=== PATIENT | male | born 1960 | race Caucasian/White ===

== ENCOUNTER 2016-09-07 16:06 | Inpatient (IN) | payer OTHER ==
[2016-09-07 20:26] VITALS: BMI 28.5
--- NOTE | 2016-09-07 21:20 | HP ---
CIWA Score - CIWA Score Nausea/Vomitin-Mild Nausea/No Vomiting Muscle Tremors: 3 Anxiety: 3 Agitation: 3 Paroxysmal Sweats: 3 Orientation: 0-Oriented Tacttile Disturbances: 0-None Auditory Disturbances: 1-Very Mild Visual Disturbances: 0-None Headache: 2-Mild CIWA-Ar Total Score: 16 Admission ROS BHS - HPI Chief Complaint: WITHDRAWAL SYMPTOMS Allergies/Adverse Reactions: Allergies Allergy/AdvReac Type Severity Reaction Status Date / Time No Known Allergies Allergy Verified 09/07/16 21:22 History of Present Illness: 56 Y.O. WITH AN EXTENSIVE HISTORY OF ALCOHOL DEPENDENCE IS HERE SEEKING DETOX. HE REPORTS HAVING AN 8 YEAR HISTORY OF SOBRIETY AND RELAPSING IN 05/2016. HE REPORTS HE WAS PREVIOUSLY HERE FOR DETOX 20 YEARS PRIOR. Exam Limitations: Intoxication - Ebola screening Have you traveled outside of the country in the last 21 days: No Have you had contact with anyone from an Ebola affected area: No Have you been sick,other than usual withdrawal symptoms: No Do you have a fever: No - Review of Systems Constitutional: Loss of Appetite EENT: reports: Blurred Vision, Double Vision, Tearing Respiratory: reports: Shortness of Breath Cardiac: reports: Lightheadedness GI: reports: Constipated (11/2013 HAD COLON RESECTION SX; ON BOWEL REGIMEN), Poor Appetite : reports: No Symptoms Reported Musculoskeletal: reports: Back Pain (SCIATICA AND OA), Muscle Weakness Integumentary: reports: No Symptoms Reported Neuro: reports: Headache, Tremors Endocrine: reports: No Symptoms Reported Hematology: reports: No Symptoms Reported Psychiatric: reports: Mood/Affect Appropiate, Orientated x3, Depressed Other Systems: Reviewed and Negative Patient History - Patient Medical History Hx Anemia: No Hx Asthma: Yes Hx Chronic Obstructive Pulmonary Disease (COPD): No Hx Cancer: No Hx Cardiac Disorders: No Hx Congestive Heart Failure: No Hx Hypertension: Yes Hx Hypercholesterolemia: No Hx Pacemaker: No HX Cerebrovascular Accident: No Hx Seizures: No Hx Dementia: No Hx Diabetes: No (BORDERLINE ) Hx Gastrointestinal Disorders: Yes (CONSTIPATION ) Hx Liver Disease: Yes (HX OF HEP. B) Hx Genitourinary Disorders: No Hx Sexually Transmitted Disorders: No Hx Renal Disease (ESRD): No Hx Thyroid Disease: No Hx Human Immunodeficiency Virus (HIV): No (NEG ) Hx Hepatitis C: No Hx Depression: Yes Hx Suicide Attempt: No Hx Bipolar Disorder: No Hx Schizophrenia: No - Patient Surgical History Past Surgical History: Yes Hx Neurologic Surgery: No Hx Cataract Extraction: No Hx Cardiac Surgery: No Hx Lung Surgery: No Hx Breast Surgery: No Hx Breast Biopsy: No Hx Abdominal Surgery: Yes (DOUBLE HERNIA REPAIR W/ MESH 05/2014) Hx Appendectomy: No Hx Cholecystectomy: No Hx Genitourinary Surgery: No Hx Orthopedic Surgery: Yes (RIGHT KNEE SX 2014, R HIP REPLACEMENT 05/2015; LEFT HIP REPLACEMENT 08/2015) Other Surgical History: BOWEL RESECTION 2013 Anesthesia Reaction: No - PPD History Previous Implant?: Yes Documented Results: Negative w/o proof PPD to be Administered?: Yes - Reproductive History Patient is a Female of Child Bearing Age (11 -55 yrs old): No - Smoking Cessation Smoking history: Current every day smoker Have you smoked in the past 12 months: Yes Aproximately how many cigarettes per day: 20 Hx Chewing Tobacco Use: No Initiated information on smoking cessation: Yes 'Breaking Loose' booklet given: 09/07/16 - Substance & Tx. History Hx Alcohol Use: Yes Hx Substance Use: Yes Substance Use Type: Alcohol Hx Substance Use Treatment: Yes (DETOX AND REHAB ) - Substances Abused Alcohol Route: Oral Frequency: Daily Amount used: 6 PACK OF BEER + 1 PINT OF LIQUOR Age of first use: 18 Date of Last Use: 09/07/16 Family Disease History - Family Disease History Family Disease History: Diabetes: Father, [place]: Grandparent, Father Admission Physical Exam BHS - Vital Signs Vital Signs: Vital Signs - 24 hr 09/07/16 20:24 Temperature 97.6 F Pulse Rate 98 H Respiratory 20 Rate Blood Pressure 163/105 - Physical General Appearance: Yes: Alcohol on Breath, Intoxicated, Tremorous, Sweating, Anxious HEENTM: Yes: Hearing grossly Normal, Normocephalic, Normal Voice Respiratory: Yes: Lungs Clear, Normal Breath Sounds, No Respiratory Distress, No Accessory Muscle Use Neck: Yes: No masses,lesions,Nodules, Trachea in good position Breast: Yes: Breast Exam Deferred Cardiology: Yes: Regular Rate, S1, S2 Abdominal: Yes: Flat, Soft, Surgical Scar Genitourinary: Yes: Other (NO COMPLAINTS REPORTED) Back: Yes: Normal Inspection Musculoskeletal: Yes: Back pain, Joint Stiffness Extremities: Yes: Tremors Neurological: Yes: Fully Oriented, Alert, Normal Mood/Affect, Normal Response Integumentary: Yes: Rash (GENERALIZED) Lymphatic: Yes: Within Normal Limits - Diagnostic (1) Alcohol dependence with uncomplicated withdrawal Current Visit: Yes Status: Chronic (2) Hypertension Current Visit: Yes Status: Chronic (3) Constipation Current Visit: Yes Status: Chronic (4) Asthma Current Visit: Yes Status: Chronic (5) Nicotine dependence Current Visit: Yes Status: Chronic (6) Dermatitis Current Visit: Yes Status: Chronic Cleared for Admission [facility] - Detox or Rehab [facility] Level of Care: Medically Managed Detox Regimen/Protocol: Librium [facility] Breath Alcohol Content Breath Alcohol Content: 0.141 Vital Signs - Bowel Function Bowel Movement: Yes (09/07/16) Urine Drug Screen - Results Drug Screen Negative: No Urine Drug Screen Results: BZO-Benzodiazepines
[2016-09-07] MEDS ORDERED: ACETAMINOPHEN 325 MG TABLET (FP) PO PRN (21:56)
[2016-09-07] MEDS ORDERED: guaiFENesin/D-METHORPHAN HB 10 ML UNIT-DOSE CUPS PO PRN (21:56)
[2016-09-07] MEDS ORDERED: LOPERAMIDE HCL 2 MG CAPSULE PO PRN (21:56)
[2016-09-07] MEDS ORDERED: MAG HYDROX/AL HYDROX/SIMETH 30 ML UNIT-DOSE CUP PO PRN (21:56)
[2016-09-07] MEDS ORDERED: MENTHOL/PHENOL 1 EACH UD MM PRN (21:56)
[2016-09-07] MEDS ORDERED: NICOTINE POLACRILEX 2 MG GUM BUC PRN (21:56)
[2016-09-07] MEDS ORDERED: MAGNESIUM CITRATE 300 ML BOTTLE PO PRN (21:56)
[2016-09-07] MEDS ORDERED: MAGNESIUM HYDROX 2400MG/30ML ORAL SUSPENSION 30 ML CUP PO PRN (21:56)
[2016-09-07] MEDS ORDERED: P-EPHED 60MG/TRIPROLIDI 2.5MG TABLET PO PRN (21:56)
[2016-09-07] MEDS ORDERED: chlordiazePOXIDE HCL 25 MG CAPSULE PO PRN (21:56)
[2016-09-07] MEDS ORDERED: FLUTICASONE PROP 0.05% 16 GM NASAL SPRAY NS PRN (22:03)
[2016-09-07] MEDS ORDERED: ALBUTEROL SO4 6.7 GM HFA INHALER IH PRN (22:04)
[2016-09-07] MEDS ORDERED: chlordiazePOXIDE HCL 25 MG CAPSULE PO ONE (22:16)
[2016-09-07] MEDS: chlordiazePOXIDE HCL 25 MG CAPSULE PO SCH (23:14)
[2016-09-07] MEDS: THIAMINE HCL 100 MG TABLET (FP) PO SCH (23:15)
[2016-09-07] MEDS: diphenhydrAMINE HCL 50 MG CAPSULE PO PRN (23:15)
[2016-09-08] MEDS: chlordiazePOXIDE HCL 25 MG CAPSULE PO SCH ×4 (05:48→22:26)
[2016-09-08] MEDS: LACTULOSE 20 GM/30 ML UDC (FOR ORAL USE ONLY) PO PRN ×2 (05:51→11:25)
[2016-09-08] MEDS: DOCUSATE SODIUM 100 MG CAPSULE (FP) PO SCH ×2 (10:40→22:26)
[2016-09-08] MEDS: PRENATAL VITAMINS W/ FOLIC ACID TABLET (FP) PO SCH (10:40)
[2016-09-08] MEDS: ASPIRIN COATED 81 MG TABLET.EC PO SCH (10:40)
[2016-09-08] MEDS: PANTOPRAZOLE 40 MG TABLET (FP) PO SCH (10:40)
[2016-09-08] MEDS: NICOTINE 21 MG/24 HOURS TOPICAL PATCH TD SCH (10:40)
[2016-09-08 10:44] LABS: MCH 30.3 pg (25.7-33.7); MCHC 33.1 g/dl (32.0-35.9); MEAN CELL VOLUME 91.7 fl (80-96); MEAN PLT VOLUME 9.3 fl (7.5-11.1); PLATELET COUNT 157 K/MM3 (134-434); RDW 14.9 % (11.9-15.9); WHITE BLOOD COUNT 5.9 K/mm3 (4.0-10.0)
[2016-09-08] MEDS: IBUPROFEN 400 MG TABLET (FP) PO PRN ×2 (10:44→18:43)
[2016-09-08] MEDS: NIFEdipine E.R. 30 MG TABLET (FP) PO SCH (11:16)
[2016-09-08 11:36] LABS: ALBUMIN 3.8 g/dl (3.4-5.0); ALK PHOS 52 U/L (45-117); ANION GAP 9 (8-16); BILIRUBIN,TOTAL 0.4 mg/dL (0.2-1.0); CALCIUM 9.1 mg/dL (8.5-10.1); CO2 28 mmol/L (21-32); COCKROFT - GAULT 100.67; GLUCOSE,RANDOM 96 mg/dL (74-106); SGOT/AST 23 U/L (15-37); SGPT/ALT 27 U/L (12-78)
--- NOTE | 2016-09-08 12:06 | PN ---
S CIWA - CIWA Score Nausea/Vomitin Muscle Tremors: 2 Anxiety: 2 Agitation: 2 Paroxysmal Sweats: 3 Orientation: 0-Oriented Tacttile Disturbances: 1-Very Mild Itch/Numbness Auditory Disturbances: 0-None Visual Disturbances: 0-None Headache: 2-Mild CIWA-Ar Total Score: 14 S Progress Note (SOAP) Subjective: muscle/joint/back pain, shakes Objective: 09/08/16 12:05 Vital Signs - 8 hr 09/08/16 09/08/16 06:26 10:22 Temperature 97 F L 96.4 F L Pulse Rate 94 H 106 H Respiratory 18 18 Rate Blood Pressure 135/82 139/92 Laboratory Last Values WBC 5.9 K/mm3 (4.0-10.0) 09/08/16 07:50 RBC 5.00 M/mm3 (4.00-5.60) 09/08/16 07:50 Hgb 15.2 GM/dL (11.7-16.9) 09/08/16 07:50 Hct 45.9 % (35.4-49) 09/08/16 07:50 MCV 91.7 fl (80-96) 09/08/16 07:50 MCHC 33.1 g/dl (32.0-35.9) 09/08/16 07:50 RDW 14.9 % (11.9-15.9) 09/08/16 07:50 Plt Count 157 K/MM3 (134-434) 09/08/16 07:50 MPV 9.3 fl (7.5-11.1) 09/08/16 07:50 Sodium 141 mmol/L (136-145) 09/08/16 07:50 Potassium 4.3 mmol/L (3.5-5.1) 09/08/16 07:50 Chloride 104 mmol/L (98-107) 09/08/16 07:50 Carbon Dioxide 28 mmol/L (21-32) 09/08/16 07:50 Anion Gap 9 (8-16) 09/08/16 07:50 BUN 12 mg/dL (7-18) 09/08/16 07:50 Creatinine 1.0 mg/dL (0.7-1.3) 09/08/16 07:50 Creat Clearance w eGFR > 60 (>60) 09/08/16 07:50 Random Glucose 96 mg/dL (74-106) 09/08/16 07:50 Calcium 9.1 mg/dL (8.5-10.1) 09/08/16 07:50 Total Bilirubin 0.4 mg/dL (0.2-1.0) 09/08/16 07:50 AST 23 U/L (15-37) 09/08/16 07:50 ALT 27 U/L (12-78) 09/08/16 07:50 Alkaline Phosphatase 52 U/L (45-117) 09/08/16 07:50 Total Protein 7.0 g/dl (6.4-8.2) 09/08/16 07:50 Albumin 3.8 g/dl (3.4-5.0) 09/08/16 07:50 labs noted Assessment: 09/08/16 12:06 withdrawal sx Plan: continue detox
--- NOTE | 2016-09-08 12:31 | CONSULT ---
[facility] Psychiatric Consult - Data Date of interview: 09/08/16 Admission source: [facility] Identifying data: First admission to [facility] for this 56 y/o male seeking detox treatment for alcohol dependence.Patient is ,a father of one,domiciled,unemployed and supported by /relatives. Substance Abuse History: - Smoking Cessation. Smoking history: Current every day smoker. Have you smoked in the past 12 months: Yes. Aproximately how many cigarettes per day: 20. Hx Chewing Tobacco Use: No. Initiated information on smoking cessation: Yes. 'Breaking Loose' booklet given: 09/07/16. - Substance & Tx. History. Hx Alcohol Use: Yes. Hx Substance Use: Yes. Substance Use Type : Alcohol. Hx Substance Use Treatment: Yes (DETOX AND REHAB ). - Substances Abused. Alcohol. Route: Oral. Frequency: Daily. Amount used: 6 PACK OF BEER + 1 PINT OF LIQUOR. Age of first use: 18. Date of Last Use: 09/07/16. Confirmed by patient. Medical History: Bronchial asthma,sciatica,herniated discs,lower back pain, diabetes mellitus (borderline),hepatitis B and a history of multiple surgeries ( right knee in 2014,right hip/left hip replacement in 2015,colon resection in 2013 and double abdominal herniorraphy with mesh in 2014). Psychiatric History: No reported history of psychiatric hospitalizations.Mr Balderas admits to a long standing history of outpatient psychiatric treatment under the care of a private psychiatrist for 14 years (now ).Patient is diagnosed with MDD and Anxiety Disorder.Maintained on trazodone 150 mg po bid + thaorazine 25 mg po bid.He has been seeing another private psychiatrist,in the [place],for one year.Last took his medications on 09/07/16 as per self- report.Patient denies history of suicide attempts. Physical/Sexual Abuse/Trauma History: Patient denies. Additional Comment: Urine Drug Screen Results: BZO-Benzodiazepines.Noted. Mental Status Exam - Mental Status Exam Alert and Oriented to: Time, Place, Person Cognitive Function: Good Patient Appearance: Well Groomed Mood: Hopeful, Euthymic Affect: Appropriate, Normal Range Patient Behavior: Cooperative Speech Pattern: Clear, Appropriate Voice Loudness: Normal Thought Process: Intact, Goal Oriented Thought Disorder: Not Present Hallucinations: Denies Suicidal Ideation: Denies Homicidal Ideation: Denies Insight/Judgement: Poor Sleep: Poorly, Difficulty falling asleep Appetite: Good Muscle strength/Tone: Normal Gait/Station: Normal Psychiatric Findings - Problem List ([place] 1, 2,3) (1) Alcohol dependence with uncomplicated withdrawal Current Visit: Yes Status: Acute (2) Nicotine dependence Current Visit: Yes Status: Acute (3) Alcohol-induced mood disorder Current Visit: Yes Status: Acute (4) Asthma Current Visit: Yes Status: Chronic (5) Constipation Current Visit: Yes Status: Chronic (6) Dermatitis Current Visit: Yes Status: Chronic (7) Hypertension Current Visit: Yes Status: Chronic (8) Insomnia Current Visit: Yes Status: Acute - Initial Treatment Plan Initial Treatment Plan: Psychoeducation.Detoxification in progress.Medications : trazodone 150 mg po hs (intentionally reduced).Thorazine is held (no clinical justification).Patient is made aware of potential for priapism with the use of trazodone.He endorses history of good tolerability to the medication.Eager to resume trazodone.Observation.
[2016-09-08] MEDS: hydrOXYzine PAMOATE 50 MG CAPSULE (FP) PO PRN (13:46)
[2016-09-08] MEDS: FLUTICASONE PROP 0.05% 16 GM NASAL SPRAY NS SCH (22:25)
[2016-09-08] MEDS: diphenhydrAMINE HCL 50 MG CAPSULE PO PRN (22:26)
[2016-09-08] MEDS: THIAMINE HCL 100 MG TABLET (FP) PO SCH (22:26)
[2016-09-08] MEDS: traZODone HCL 50 MG TABLET (FP) PO SCH (22:26)
[2016-09-09] MEDS: hydrOXYzine PAMOATE 50 MG CAPSULE (FP) PO PRN ×2 (04:26→13:16)
[2016-09-09] MEDS: IBUPROFEN 400 MG TABLET (FP) PO PRN ×2 (04:26→16:40)
[2016-09-09] MEDS: chlordiazePOXIDE HCL 25 MG CAPSULE PO SCH ×3 (05:38→17:13)
[2016-09-09] MEDS: LACTULOSE 20 GM/30 ML UDC (FOR ORAL USE ONLY) PO PRN ×2 (05:39→17:14)
[2016-09-09] MEDS: PRENATAL VITAMINS W/ FOLIC ACID TABLET (FP) PO SCH (10:34)
[2016-09-09] MEDS: FLUTICASONE PROP 0.05% 16 GM NASAL SPRAY NS SCH ×2 (10:34→22:44)
[2016-09-09] MEDS: NIFEdipine E.R. 30 MG TABLET (FP) PO SCH (10:34)
[2016-09-09] MEDS: DOCUSATE SODIUM 100 MG CAPSULE (FP) PO SCH ×2 (10:34→22:44)
[2016-09-09] MEDS: PANTOPRAZOLE 40 MG TABLET (FP) PO SCH (10:35)
[2016-09-09] MEDS: NICOTINE 21 MG/24 HOURS TOPICAL PATCH TD SCH (10:35)
[2016-09-09] MEDS: ASPIRIN COATED 81 MG TABLET.EC PO SCH (10:35)
--- NOTE | 2016-09-09 14:39 | PN ---
S CIWA - CIWA Score Nausea/Vomitin Muscle Tremors: 4-Moderate,w/Arms Extend Anxiety: 4-Mod. Anxious/Guarded Agitation: 4-Moderately Restless Paroxysmal Sweats: 3 Orientation: 0-Oriented Tacttile Disturbances: 1-Very Mild Itch/Numbness Auditory Disturbances: 0-None Visual Disturbances: 0-None Headache: 3-Moderate CIWA-Ar Total Score: 22 BHS Progress Note (SOAP) Subjective: Tremor, chills, nausea, anxious, restless, diarrhea Objective: 09/09/16 14:38 Last Vital Signs Temp Pulse Resp BP Pulse Ox 99.1 F 72 20 156/94 09/09/16 13:45 09/09/16 13:45 09/09/16 13:45 09/09/16 13:45 Laboratory Tests 09/08/16 09/08/16 09/08/16 07:50 07:50 07:50 WBC 5.9 RBC 5.00 Hgb 15.2 Hct 45.9 MCV 91.7 MCHC 33.1 RDW 14.9 Plt Count 157 MPV 9.3 Sodium 141 Potassium 4.3 Chloride 104 Carbon Dioxide 28 Anion Gap 9 BUN 12 Creatinine 1.0 Creat Clearance w eGFR > 60 Random Glucose 96 Calcium 9.1 Total Bilirubin 0.4 AST 23 ALT 27 Alkaline Phosphatase 52 Total Protein 7.0 Albumin 3.8 RPR Titer Nonreactive Labs noted Assessment: 09/09/16 14:39 Withdrawal symptoms Plan: Continue detox, encouraged to drink lots of water
[2016-09-09] MEDS: THIAMINE HCL 100 MG TABLET (FP) PO SCH (22:43)
[2016-09-09] MEDS: chlordiazePOXIDE 5 MG CAPSULE PO SCH (22:43)
[2016-09-09] MEDS: traZODone HCL 50 MG TABLET (FP) PO SCH (22:44)
[2016-09-09] MEDS: diphenhydrAMINE HCL 50 MG CAPSULE PO PRN (22:47)
[2016-09-10] MEDS: hydrOXYzine PAMOATE 50 MG CAPSULE (FP) PO PRN ×4 (00:33→19:11)
[2016-09-10] MEDS: LACTULOSE 20 GM/30 ML UDC (FOR ORAL USE ONLY) PO PRN ×2 (05:03→17:11)
[2016-09-10] MEDS: IBUPROFEN 400 MG TABLET (FP) PO PRN ×2 (05:03→13:15)
[2016-09-10] MEDS: chlordiazePOXIDE 5 MG CAPSULE PO SCH ×3 (05:03→17:10)
[2016-09-10] MEDS: NICOTINE 21 MG/24 HOURS TOPICAL PATCH TD SCH (10:37)
[2016-09-10] MEDS: PANTOPRAZOLE 40 MG TABLET (FP) PO SCH (10:38)
[2016-09-10] MEDS: NIFEdipine E.R. 30 MG TABLET (FP) PO SCH (10:38)
[2016-09-10] MEDS: ASPIRIN COATED 81 MG TABLET.EC PO SCH (10:38)
[2016-09-10] MEDS: PRENATAL VITAMINS W/ FOLIC ACID TABLET (FP) PO SCH (10:38)
[2016-09-10] MEDS: DOCUSATE SODIUM 100 MG CAPSULE (FP) PO SCH ×2 (10:39→22:29)
[2016-09-10] MEDS: FLUTICASONE PROP 0.05% 16 GM NASAL SPRAY NS SCH ×2 (10:39→22:31)
--- NOTE | 2016-09-10 11:31 | EKG ---
Test Reason : Blood Pressure : / mmHG Vent. Rate : 088 BPM Atrial Rate : 088 BPM P-R Int : 136 ms QRS Dur : 084 ms QT Int : 374 ms P-R-T Axes : 068 074 053 degrees QTc Int : 452 ms NORMAL SINUS RHYTHM NORMAL ECG NO PREVIOUS ECGS AVAILABLE Confirmed by DAVID PAK, LANE ([id number]) on 09/10/2016 11:31:18 AM Referred By: Confirmed By:LANE HERNANDEZ MD
[2016-09-10] MEDS: BISACODYL 5 MG TABLET.DR (FP) PO PRN (12:26)
--- NOTE | 2016-09-10 13:45 | PN ---
S Progress Note (SOAP) Subjective: Anxious, restless, sweating, interrupted sleep Objective: 09/10/16 13:44 Last Vital Signs Temp Pulse Resp BP Pulse Ox 97.1 F L 68 18 144/97 09/10/16 13:23 09/10/16 13:23 09/10/16 13:23 09/10/16 13:23 Laboratory Tests 09/08/16 09/08/16 09/08/16 07:50 07:50 07:50 WBC 5.9 RBC 5.00 Hgb 15.2 Hct 45.9 MCV 91.7 MCHC 33.1 RDW 14.9 Plt Count 157 MPV 9.3 Sodium 141 Potassium 4.3 Chloride 104 Carbon Dioxide 28 Anion Gap 9 BUN 12 Creatinine 1.0 Creat Clearance w eGFR > 60 Random Glucose 96 Calcium 9.1 Total Bilirubin 0.4 AST 23 ALT 27 Alkaline Phosphatase 52 Total Protein 7.0 Albumin 3.8 RPR Titer Nonreactive Labs noted Assessment: 09/10/16 13:44 Withdrawal symptoms Plan: Continue detox
[2016-09-10 14:40] LABS: URINE APPEARANCE CLEAR; URINE BILIRUBIN NEGATIVE (NEGATIVE); URINE BLOOD NEGATIVE (NEGATIVE); URINE COLOR STRAW; URINE GLUCOSE (UA) NEGATIVE (NEGATIVE); URINE KETONE NEGATIVE (NEGATIVE); URINE LEUK ESTERASE NEGATIVE (NEGATIVE); URINE NITRITE NEGATIVE (NEGATIVE); URINE PROTEIN NEGATIVE (NEGATIVE); URINE UROBILINOGEN NEGATIVE E.U./dl (0.2-1.0)
[2016-09-10] MEDS: diphenhydrAMINE HCL 50 MG CAPSULE PO PRN (22:29)
[2016-09-10] MEDS: chlordiazePOXIDE HCL 10 MG CAPSULE PO SCH (22:29)
[2016-09-10] MEDS: THIAMINE HCL 100 MG TABLET (FP) PO SCH (22:29)
[2016-09-10] MEDS: traZODone HCL 50 MG TABLET (FP) PO SCH (22:29)
[2016-09-11] MEDS: IBUPROFEN 400 MG TABLET (FP) PO PRN (03:11)
[2016-09-11] MEDS: hydrOXYzine PAMOATE 50 MG CAPSULE (FP) PO PRN ×2 (03:11→09:23)
[2016-09-11] MEDS: LACTULOSE 20 GM/30 ML UDC (FOR ORAL USE ONLY) PO PRN (05:09)
[2016-09-11] MEDS: chlordiazePOXIDE HCL 10 MG CAPSULE PO SCH (05:24)
[2016-09-11 06:16] VITALS: BP 136/85; PULSE 64; TEMP 96.5
--- NOTE | 2016-09-11 09:03 | DS ---
[facility] Detox Discharge Summary Admission Date: 09/07/16 Discharge Date: 09/11/16 - History Present History: Alcohol Dependence Pertinent Past History: Asthma HTN - Physical Exam Results Vital Signs: Vital Signs Temperature 96.5 F L 09/11/16 06:16 Pulse Rate 64 09/11/16 06:16 Respiratory Rate 18 09/11/16 06:16 Blood Pressure 136/85 09/11/16 06:16 O2 Sat by Pulse Oximetry (%) Pertinent Admission Physical Exam Findings: Withdrawal sx. Laboratory Last Values WBC 5.9 K/mm3 (4.0-10.0) 09/08/16 07:50 RBC 5.00 M/mm3 (4.00-5.60) 09/08/16 07:50 Hgb 15.2 GM/dL (11.7-16.9) 09/08/16 07:50 Hct 45.9 % (35.4-49) 09/08/16 07:50 MCV 91.7 fl (80-96) 09/08/16 07:50 MCHC 33.1 g/dl (32.0-35.9) 09/08/16 07:50 RDW 14.9 % (11.9-15.9) 09/08/16 07:50 Plt Count 157 K/MM3 (134-434) 09/08/16 07:50 MPV 9.3 fl (7.5-11.1) 09/08/16 07:50 Sodium 141 mmol/L (136-145) 09/08/16 07:50 Potassium 4.3 mmol/L (3.5-5.1) 09/08/16 07:50 Chloride 104 mmol/L (98-107) 09/08/16 07:50 Carbon Dioxide 28 mmol/L (21-32) 09/08/16 07:50 Anion Gap 9 (8-16) 09/08/16 07:50 BUN 12 mg/dL (7-18) 09/08/16 07:50 Creatinine 1.0 mg/dL (0.7-1.3) 09/08/16 07:50 Creat Clearance w eGFR > 60 (>60) 09/08/16 07:50 Random Glucose 96 mg/dL (74-106) 09/08/16 07:50 Calcium 9.1 mg/dL (8.5-10.1) 09/08/16 07:50 Total Bilirubin 0.4 mg/dL (0.2-1.0) 09/08/16 07:50 AST 23 U/L (15-37) 09/08/16 07:50 ALT 27 U/L (12-78) 09/08/16 07:50 Alkaline Phosphatase 52 U/L (45-117) 09/08/16 07:50 Total Protein 7.0 g/dl (6.4-8.2) 09/08/16 07:50 Albumin 3.8 g/dl (3.4-5.0) 09/08/16 07:50 Urine Color Straw 09/10/16 09:10 Urine Appearance Clear 09/10/16 09:10 Urine pH 6.0 (5.0-8.0) 09/10/16 09:10 Ur Specific [place] 1.010 (1.005-1.025) 09/10/16 09:10 Urine Protein Negative (NEGATIVE) 09/10/16 09:10 Urine Glucose (UA) Negative (NEGATIVE) 09/10/16 09:10 Urine Ketones Negative (NEGATIVE) 09/10/16 09:10 Urine Blood Negative (NEGATIVE) 09/10/16 09:10 Urine Nitrite Negative (NEGATIVE) 09/10/16 09:10 Urine Bilirubin Negative (NEGATIVE) 09/10/16 09:10 Urine Urobilinogen Negative E.U./dl (0.2-1.0) 09/10/16 09:10 Ur Leukocyte Esterase Negative (NEGATIVE) 09/10/16 09:10 RPR Titer Nonreactive (NONREACTIVE) 09/08/16 07:50 labs noted - Treatment Hospital Course: Detox Protocol Followed, Detoxed Safely, Responded well, Discharged Condition Good, Rehab Referral Accepted Patient has Accepted a Rehab Referral to: [facility] & 12 steps meetings - Medication Discharge Medications: Ambulatory Orders Aspirin [ASA -] 81 mg PO DAILY 09/07/16 Clobetasol Prop 0.05% Tp Oint [Temovate (Nf)] 60 gm NR BID 09/07/16 Docusate Sodium [Colace -] 100 mg PO BID 09/07/16 Hydrochlorothiazide [Hctz -] 12.5 mg PO DAILY 09/07/16 Nifedipine [Procardia Xl] 30 mg PO DAILY 09/07/16 Pantoprazole Sodium [Protonix -] 40 mg PO BID 09/07/16 Trazodone HCl [Desyrel -] 150 mg PO HS #30 tablet 09/10/16 - Diagnosis (1) Alcohol dependence with uncomplicated withdrawal Current Visit: Yes Status: Acute (2) Alcohol-induced mood disorder Current Visit: Yes Status: Acute (3) Insomnia Current Visit: Yes Status: Acute Qualifiers: Insomnia type: alcohol-induced Qualified Code(s): F10.982 - Alcohol use, unspecified with alcohol-induced sleep disorder (4) Nicotine dependence Current Visit: Yes Status: Acute (5) Asthma Current Visit: Yes Status: Chronic Qualifiers: Asthma severity: mild intermittent Asthma complication type: uncomplicated Qualified Code(s): J45.20 - Mild intermittent asthma, uncomplicated (6) Hypertension Current Visit: Yes Status: Chronic Qualifiers: Hypertension type: essential hypertension Qualified Code(s): I10 - Essential (primary) hypertension - AMA Did Patient Leave Against Medical Advice: No
[2016-09-11] MEDS: PANTOPRAZOLE 40 MG TABLET (FP) PO SCH (09:21)
[2016-09-11] MEDS: ASPIRIN COATED 81 MG TABLET.EC PO SCH (09:21)
[2016-09-11] MEDS: PRENATAL VITAMINS W/ FOLIC ACID TABLET (FP) PO SCH (09:21)
[2016-09-11] MEDS: DOCUSATE SODIUM 100 MG CAPSULE (FP) PO SCH (09:21)
[2016-09-11] MEDS: NIFEdipine E.R. 30 MG TABLET (FP) PO SCH (09:21)
[2016-09-11] MEDS: FLUTICASONE PROP 0.05% 16 GM NASAL SPRAY NS SCH (09:21)
[2016-09-11] MEDS: NICOTINE 21 MG/24 HOURS TOPICAL PATCH TD SCH (09:22)
[2016-09-11] MEDS: BISACODYL 5 MG TABLET.DR (FP) PO PRN (09:23)
== END 2016-09-11 09:30 | disposition home or self-care (01) | DRG 775 ==
LOC: YASAS 16:06 → Y3N 22:06
PROVIDERS: ADMIT Internal Medicine; ATTEND Internal Medicine
PROC: HZ2ZZZZ Detoxification Services for Substance Abuse Treatment (ICD-10-PCS; principal; 2016-09-07)
DX: F10.230 Alcohol dependence with withdrawal, uncomplicated (principal); F10.24 Alcohol dependence with alcohol-induced mood disorder; F10.282 Alcohol dependence with alcohol-induced sleep disorder; F17.210 Nicotine dependence, cigarettes, uncomplicated; J45.20 Mild intermittent asthma, uncomplicated; I10 Essential (primary) hypertension; K59.00 Constipation, unspecified; L30.9 Dermatitis, unspecified; R73.03 Prediabetes; B18.1 Chronic viral hepatitis B without delta-agent; Z96.643 Presence of artificial hip joint, bilateral
CPT/HCPCS: 36415; 80053; 81003; 85027; 86593; 93005; 93010

== ENCOUNTER 2021-02-26 21:13 | Inpatient (IN) | payer OTHER ==
[2021-02-26 21:20] VITALS: BMI 28.3
[2021-02-26] MEDS ORDERED: ONDANSETRON *ODT* 4 MG TABLET SL PRN (21:51)
[2021-02-26] MEDS ORDERED: IBUPROFEN 400 MG TABLET (FP) PO PRN (21:51)
[2021-02-26] MEDS ORDERED: NICOTINE POLACRILEX 2 MG GUM BUC PRN (21:51)
[2021-02-26] MEDS ORDERED: METHOCARBAMOL 500 MG TABLET PO PRN (21:51)
[2021-02-26] MEDS ORDERED: ACETAMINOPHEN 325 MG TABLET (FP) PO PRN ×2 (21:51)
[2021-02-26] MEDS ORDERED: MAGNESIUM HYDROX 2400MG/30ML ORAL SUSPENSION 30 ML CUP PO PRN (21:51)
[2021-02-26] MEDS ORDERED: BISMUTH SUBSALICYLATE 524 MG/30 ML PO PRN (21:51)
[2021-02-26] MEDS ORDERED: MAGNESIUM CITRATE 300 ML BOTTLE PO PRN (21:51)
[2021-02-26] MEDS ORDERED: MAG HYDROX/AL HYDROX/SIMETH 30 ML UNIT-DOSE CUP PO PRN (21:51)
[2021-02-26] MEDS ORDERED: MENTHOL/PHENOL 1 EACH UD MM PRN (21:51)
[2021-02-26] MEDS: THIAMINE HCL 100 MG TABLET (FP) PO SCH (23:11)
[2021-02-26] MEDS: LORazepam 2 MG TABLET PO SCH (23:11)
[2021-02-26] MEDS: MELATONIN 5 MG TABLETS PO SCH (23:12)
[2021-02-27] MEDS: LORazepam 2 MG TABLET PO SCH ×4 (05:35→22:14)
[2021-02-27] MEDS: NICOTINE 14 MG/24 HOURS TOPICAL PATCH TD SCH (10:29)
[2021-02-27] MEDS: PRENATAL VITAMINS W/ FOLIC ACID TABLET (FP) PO SCH (10:29)
[2021-02-27 12:21] LABS: HEMATOCRIT 44.3 % (35.4-49); HEMOGLOBIN 14.8 GM/dL (11.7-16.9); MCH 30.3 pg (25.7-33.7); MCHC 33.4 g/dl (32.0-35.9); MEAN CELL VOLUME 90.7 fl (80-96); MEAN PLT VOLUME 8.9 fl (7.5-11.1); PLATELET COUNT 176 10^3/uL (134-434); RBC 4.88 M/mm3 (4.00-5.60); RDW 14.3 % (11.9-15.9); WHITE BLOOD COUNT 5.3 K/mm3 (4.0-10.0)
[2021-02-27 12:27] LABS: ALBUMIN 3.3 g/dl (3.4-5.0); BLOOD UREA NITROGEN 11.5 mg/dL (7-18); CALCIUM 8.4 mg/dL (8.5-10.1)
[2021-02-27] MEDS: FLUTICASONE PROP 0.05% 16 GM NASAL SPRAY NS SCH ×2 (12:31→22:50)
[2021-02-27 12:32] LABS: BILIRUBIN,TOTAL 0.6 mg/dL (0.2-1); TOT PROT 6.3 g/dl (6.4-8.2)
[2021-02-27 13:16] LABS: SYPHILIS W/ RPR CONF NON-REACTIVE (NONREACTIVE)
[2021-02-27 13:45] LABS: HIV INTERPRETATION NEGATIVE (NEGATIVE)
[2021-02-27] MEDS ORDERED: GABAPENTIN 300 MG CAPSULE PO SCH (14:00)
[2021-02-27] MEDS: GABAPENTIN 300 MG CAPSULE PO PRN ×2 (15:32→22:10)
[2021-02-27] MEDS: LACTULOSE 20 GM/30 ML UDC (FOR ORAL USE ONLY) PO SCH ×2 (15:33→22:10)
[2021-02-27] MEDS: LORazepam 1 MG TABLET PO PRN (20:07)
[2021-02-27] MEDS: THIAMINE HCL 100 MG TABLET (FP) PO SCH (22:09)
[2021-02-27] MEDS: MELATONIN 5 MG TABLETS PO SCH (22:09)
[2021-02-27] MEDS: DOCUSATE SODIUM 100 MG CAPSULE (FP) PO SCH (22:09)
[2021-02-27] MEDS: traZODone HCL 100 MG TABLET (FP) PO SCH (22:10)
[2021-02-28] MEDS: LORazepam 1 MG TABLET PO PRN (03:40)
[2021-02-28] MEDS: LACTULOSE 20 GM/30 ML UDC (FOR ORAL USE ONLY) PO SCH ×3 (05:36→22:06)
[2021-02-28] MEDS: LORazepam 1 MG TABLET PO SCH ×4 (05:37→22:08)
[2021-02-28] MEDS: NIFEdipine E.R. 30 MG TABLET PO SCH (10:13)
[2021-02-28] MEDS: DOCUSATE SODIUM 100 MG CAPSULE (FP) PO SCH ×2 (10:13→22:07)
[2021-02-28] MEDS: PRENATAL VITAMINS W/ FOLIC ACID TABLET (FP) PO SCH (10:13)
[2021-02-28] MEDS: NICOTINE 14 MG/24 HOURS TOPICAL PATCH TD SCH (10:13)
[2021-02-28] MEDS: PANTOPRAZOLE 40 MG TABLET PO SCH (10:13)
[2021-02-28] MEDS: ASPIRIN 81 MG CHEWABLE TABLETS PO SCH (10:13)
[2021-02-28] MEDS: HYDROCHLOROTHIAZIDE 12.5 MG CAPSULE (FP) PO SCH (10:14)
[2021-02-28] MEDS: FLUTICASONE PROP 0.05% 16 GM NASAL SPRAY NS SCH ×2 (10:14→22:07)
[2021-02-28] MEDS: GABAPENTIN 300 MG CAPSULE PO PRN (14:31)
[2021-02-28] MEDS ORDERED: POLYETHYLENE GLYCOL (HEALTHYLAX) 3350 17 GM PACKET PO SCH (19:45)
[2021-02-28] MEDS ORDERED: BISACODYL 5 MG TABLET.DR (FP) PO ONE (20:07)
[2021-02-28] MEDS: MELATONIN 5 MG TABLETS PO SCH (22:07)
[2021-02-28] MEDS: traZODone HCL 100 MG TABLET (FP) PO SCH (22:07)
[2021-02-28] MEDS: THIAMINE HCL 100 MG TABLET (FP) PO SCH (22:07)
[2021-03-01] MEDS ORDERED: LORazepam 0.5 MG TABLET PO PRN
[2021-03-01] MEDS: LORazepam 0.5 MG TABLET PO SCH ×2 (06:15→09:59)
[2021-03-01] MEDS: LACTULOSE 20 GM/30 ML UDC (FOR ORAL USE ONLY) PO SCH (06:16)
[2021-03-01 08:59] VITALS: BP 141/97; PULSE 100; TEMP 97.1
[2021-03-01] MEDS: FLUTICASONE PROP 0.05% 16 GM NASAL SPRAY NS SCH (09:57)
[2021-03-01] MEDS: PANTOPRAZOLE 40 MG TABLET PO SCH (09:58)
[2021-03-01] MEDS: NIFEdipine E.R. 30 MG TABLET PO SCH (09:59)
[2021-03-01] MEDS: ASPIRIN 81 MG CHEWABLE TABLETS PO SCH (09:59)
[2021-03-01] MEDS: DOCUSATE SODIUM 100 MG CAPSULE (FP) PO SCH (09:59)
[2021-03-01] MEDS: HYDROCHLOROTHIAZIDE 12.5 MG CAPSULE (FP) PO SCH (09:59)
[2021-03-01] MEDS: PRENATAL VITAMINS W/ FOLIC ACID TABLET (FP) PO SCH (09:59)
[2021-03-01] MEDS: NICOTINE 14 MG/24 HOURS TOPICAL PATCH TD SCH (09:59)
[2021-03-02] MEDS ORDERED: LORazepam 0.5 MG TABLET PO ONE (05:00)
== END 2021-03-01 11:42 | disposition left against medical advice (07) | DRG 770 ==
LOC: YASAS 21:13 → Y3N 22:16
PROVIDERS: ADMIT Allergy & Immunology; ATTEND Allergy & Immunology
PROC: HZ2ZZZZ Detoxification Services for Substance Abuse Treatment (ICD-10-PCS; principal; 2021-02-26)
DX: F10.230 Alcohol dependence with withdrawal, uncomplicated (principal); F17.210 Nicotine dependence, cigarettes, uncomplicated; F10.282 Alcohol dependence with alcohol-induced sleep disorder; F10.24 Alcohol dependence with alcohol-induced mood disorder; F41.9 Anxiety disorder, unspecified; F32.A Depression, unspecified; E78.5 Hyperlipidemia, unspecified; I10 Essential (primary) hypertension; J45.20 Mild intermittent asthma, uncomplicated; K59.00 Constipation, unspecified; L30.9 Dermatitis, unspecified
CPT/HCPCS: 36415; 80053; 85027; 86780; 87389; 93005; 93010; C9803; Q0162; U0003; U0005